=== PATIENT | female | born 1970 | race Caucasian/White ===

== ENCOUNTER 2017-06-12 17:52 | Inpatient (IN) | payer OTHER ==
[~2017-06-12] VITALS: Ht 162.6 cm; Wt 90.7 kg
[~2017-06-12 17:52] MED LIST: ACETAMINOPHEN-1 EAC1 PO; BENTYL 20 MG TA20 M1 PO; CRESTOR20 MG PO; CYMBALTA60 MG PO; DICLOFENAC SODI75 MG PO; DULOXETINE HCL40 MG PO; FLEXERIL PO; MEDROLDOSEPACK PO; NORFLEX100 MG PO; PROMETHAZINE V473 ML PO; TOPAMAX 100 MG100 MG PO; ULTRAM 50MG TAB50 MG PO; ZOFRAN4 MG PO; ZPAK PO; [UNRECOGNIZED DRUG - OTHER]
[2017-06-12 18:08] VITALS: BP 111/68
[2017-06-12 18:43] LABS: ABSOLUTE BASOPHILS 0.1 thou/uL (0.0-0.2); BASOPHILS 0.6 %; HEMATOCRIT 36.3 % (37.0-47.0); MCV 83.4 fL (80.0-100.0); RBC 4.35 mil/uL (4.20-5.00); RDW-CV 14.5 % (10.5-14.5)
[2017-06-12 18:44] LABS: ABSOLUTE EOSINOPHILS 0.3 thou/uL (0.0-0.7); ABSOLUTE LYMPHOCYTES 2.7 thou/uL (0.8-5.3); ABSOLUTE MONOCYTES 0.8 thou/uL (0.0-1.2); EOSINOPHILS 2.3 %; HEMOGLOBIN 11.8 gm/dL (12.0-15.0); LYMPHOCYTES 23.1 %; MCH 27.2 pg (26.0-34.0); MCHC 32.6 g/dL (28.0-37.0); MONOCYTES 6.5 %; NUCLEATED RBCS 0 /100WBC; PLATELET COUNT* 395 thou/uL (150-400); POLYS 67.5 %; WBC 11.8 thou/uL (4.0-11.0)
[2017-06-12 18:50] LABS: ANION GAP 10 mmol/L (7-16); BUN 6 mg/dL (7-18); CALCIUM 8.6 mg/dL (8.5-10.1); CHLORIDE 103 mmol/L (98-107); CO2 23 mmol/L (21-32); CREATININE 0.6 mg/dL (0.6-1.3); GLUCOSE 96 mg/dL (70-99); POTASSIUM 3.6 mmol/L (3.5-5.1); SODIUM 136 mmol/L (136-145)
[2017-06-12 18:56] LABS: ALBUMIN 3.3 g/dL (3.4-5.0); ALKALINE PHOSPHATASE 125 U/L (46-116); SGOT 25 U/L (15-37); SGPT 35 U/L (30-65); TOTAL BILIRUBIN 0.4 mg/dL (<0.1-1.0); TOTAL PROTEIN 7.5 g/dL (6.4-8.2); TROPONIN-I LEVEL <0.06 ng/mL (<0.06)
[2017-06-12 19:12] LABS: APTT 28.8 Seconds (25.0-31.3); PROTIME 9.9 Seconds (9.20-11.50)
[2017-06-13] VITALS (8 sets, daily range): BP systolic 86–125; BP diastolic 52–78
[2017-06-13 00:59] LABS: INFLUENZA A ANTIGEN None Detected (None Detect); INFLUENZA B ANTIGEN None Detected (None Detect)
--- NOTE | 2017-06-13 11:24 | EKG ---
[place] [address] ELECTROCARDIOGRAM REPORT Name: JOSÉ MIGUEL LOOMIS Room: [place] [address] ADM IN [facility]#: [id number] Admission: 06/12/17 Attend Phys: Leti Tolentino MD Discharge: Date of : 70 Report #: [id number] THIS REPORT FOR: //name// [facility] ED Test Date: 2017-06-12 Test Time: 18:05:14 Pat Name: JOSÉ MIGUEL LOOMIS Department: Room: [facility] Gender: F School Psychologist: MACKENZIE : 1970 Requested By: Debbie Street Order Number: [id number] MD: Janes Bennett Measurements Intervals [place] Rate: 100 P: 51 SC: 154 QRS: -41 QRSD: 104 T: 58 QT: 374 QTc: 483 Interpretive Statements Sinus tachycardia Left axis deviation Low voltage, precordial leads Probable anterolateral infarct, old Baseline wander in lead(s) V5 No previous ECG available for comparison Electronically Signed On 06-13-2017 11:23:58 COMMERCIAL REPRESENTATIVE by Janes Bennett [email or web address] <ELECTRONICALLY SIGNED> By: Janes Bennett MD, [facility] 06/13/17 1123 1805 1805 Janes Bennett MD, [facility] /EPI
--- NOTE | 2017-06-13 19:12 | NUR ---
LAMAR RESTING IN BED. UP TO CHAIR AND AMBULATION WITH STANDBY ASSISTANCE ONLY. IV MEDICATION PROVIDES GOOD PAIN CONTROL. SB/NSR ON MONITOR. HOURKY ROUNDING COMPLETED FOR PATIENT SAFETY.
[2017-06-14] VITALS: BP 93/53
[2017-06-14 04:00] VITALS: BP 95/51
--- NOTE | 2017-06-14 04:14 | NUR ---
ASSUMED CARE OF PT AT 1930, NURSING ASSESSMENT COMPLETED AT START OF SHIFT, PT C/O PAIN TO RIGHT SIDE OF CHEST THAT IS WORSE WITH INSPIRATION. PRN PAIN MEDICATIONS ADMINISTERED, SEE EMAR FOR DOCUMENTATION. CALL LIGHT WITHIN REACH. PT TRACING SINUS RHYTHM THIS SHIFT.
[2017-06-14 05:20] LABS: HEMATOCRIT 32.1 % (37.0-47.0); HEMOGLOBIN 10.7 gm/dL (12.0-15.0); MCH 27.6 pg (26.0-34.0); MCHC 33.4 g/dL (28.0-37.0); MCV 82.8 fL (80.0-100.0); MPV 7.3 fl. (7.2-11.1); RBC 3.88 mil/uL (4.20-5.00); RDW-CV 14.6 % (10.5-14.5); WBC 9.5 thou/uL (4.0-11.0)
[2017-06-14 05:36] LABS: CALCIUM 8.5 mg/dL (8.5-10.1); CREATININE 0.6 mg/dL (0.6-1.3); MAGNESIUM 1.9 mg/dL (1.8-2.4); POTASSIUM 3.7 mmol/L (3.5-5.1)
[2017-06-14 08:00] VITALS: BP 86/49
[2017-06-14 11:41] VITALS: BP 96/61
--- NOTE | 2017-06-14 12:14 | NUR ---
RX FOR XARELTO 15 MG PO BID X30 DAYS CALLED IN TO [facility] IN [place]. CARTER WILL BE $8.35 FOR A ONE MONTH SUPPLY. PT NOTIFIED
--- NOTE | 2017-06-14 12:38 | NUR ---
RECEIVED PT CARE 0700. PT IS ALERT AND ORIENTED X4. VSS. SURGICAL APPLIANCE FITTER TRACING SR. PT DENIES ANY SOA. O2 SAT 93% ON ROOM AIR. UP AD STAS IN ROOM WITH BATHROOM PRIVILEDGES. GAIT IS STEADY. PRN PAIN MEDICATIONS GIVEN WITH GOOD RELIEF. SHE COMPLAINS OF RIGHT CHEST, HEAD, AND BACK PAINS THIS AM. UP TO SHOWER INDEPENDENTLY THIS AM. AM ASSESSMENT CHARTED. MEDS PER MAR. CHECKING ON PRICES FOR HOME XARELTO. PLANNING FOR DC TO HOME TOMORROW IF STABLE. PATIENT UPDATED ON PLAN OF CARE. CALL LIGHT WITHIN REACH. WILL CONTINUE TO MONITOR.
--- NOTE | 2017-06-14 13:00 | NUR ---
RX CALLED IN FOR [address] HARRINGTON
--- NOTE | 2017-06-14 15:19 | NUR ---
CM ASSESSMENT: Pt is A&O. Resides at home. Independent with ADLs. No DME. No hx of HH or SNF. Anticipate dc tomorrow. No needs.
[2017-06-14 16:00] VITALS: BP 124/69
--- NOTE | 2017-06-14 18:55 | NUR ---
PT PARTIALLY PROGRESSING TOWARDS GOALS. PAIN MEDICATIONS ADJUSTED FOR BETTER PAIN MANAGEMENT. PATIENT IS UP INDEPENDENTLY IN ROOM WITH BATHROOM PRIVILEDGES. GAIT IS STEADY. TOLERATING HER DIET WELL WITHOUT ANY NAUSEA OR VOMITING. HOURLY ROUNDING CHARTED. CALL LIGHT WITHIN REACH. WILL CONTINUE TO MONITOR.
[2017-06-14 20:00] VITALS: BP 101/55
[2017-06-15] VITALS (8 sets, daily range): BP systolic 82–135; BP diastolic 48–57
--- NOTE | 2017-06-15 05:21 | NUR ---
ASSUMED CARE OF PT AT 1930, NURSING ASSESSMENT COMPLETED AT START OF SHIFT, PRN PAIN MEDICATION ADMINISTERED THIS SHIFT, SEE EMAR FOR DOCUMENTATION, PT CONTINUES ON TELE MONITOR, TRACING SINUS RHYTHM TO SINUS TACHY IN THE LOW 100S. CALL LIGHT REMAINS WITHIN REACH.
--- NOTE | 2017-06-15 10:05 | NUR ---
ASSUMED CARE OF PT AT 0730. PT LYING IN BED. AT APPROXIMATELY 0840 PT COMPLAINED OF CHEST PAIN RADIATING TO LEFT SHOULDER AND BACK. EKG OBTAINED TRACING SR. CHEST PAIN TREATED WITH NITRO X 3 WITH PARTIAL RELIEF. PT STATED AFTER THIRD NITRO PAIN IS CENTERED TO BACK. BLOOD PRESSURE STABLE. REFER TO CHARTING. PT PLACED ON 2L NC FOR COMFORT. SAT 97%. DENIES ANY SHORTNESS OF BREATH. DR HARRINGTON NOTIFIED. NO NEW ORDERS RECEIVED AT THIS TIME. PT A&0X4. TRACING SR ON THE PRESSURIZER. PT UP AD STAS IN ROOM. PT GOAL FOR TODAY IS PAIN MGMT. AM ASSESSMENT CHARTED. MEDICATIONS PER AUG. PT REPOSITIONS SELF IN BED. HOURLY ROUNDING OBSERVED. BED IN LOW POSITION. CALL LIGHT WITHIN REACH. WILL CONTINUE PLAN OF CARE.
[2017-06-15] MEDS ORDERED: XARELTO15 MG PO (10:43)
[2017-06-15] MEDS ORDERED: LIDOPATCH1 EACH TOP (10:43)
[2017-06-15] MEDS ORDERED: PERCOCET PO (11:55)
--- NOTE | 2017-06-15 12:22 | NUR ---
DISCHARGE ORDERS RECEIVED. DISCHARGE INSTRUCTIONS, CARE NOTES, SCRIPTS AND FOLLOW UP APPTS GIVEN TO PT. PT COMMUNICATES UNDERSTANDING OF DISCHARGE TEACHING. IV AND ELECTRICIAN RADIO REMOVED. PT DISCHARGED WITH ALL BELONGINGS AND PAPERWORK VIA WHEELCHAIR WITH NURSING STAFF TO SPOUSE OWN PERSONAL VEHICLE.
--- NOTE | 2017-06-15 17:30 | EKG ---
[place] [address] ELECTROCARDIOGRAM REPORT Name: JOSÉ MIGUEL LOOMIS Room: [address] IN M.R.#: [id number] Admission: 06/12/17 Attend Phys: Leti Tolentino MD Discharge: 06/15/17 Date of : 70 Report #: [id number] THIS REPORT FOR: //name// [facility] Test Date: 2017-06-15 Test Time: 08:36:34 Pat Name: JOSÉ MIGUEL LOOMIS Department: Room: [address] Gender: F Computing Tutor: : 1970 Requested By: Leti Tolentino Order Number: [id number] Marta MD: Sharath Rg Measurements Intervals [place] Rate: 83 P: -17 UT: 145 QRS: -23 QRSD: 126 T: 14 QT: 400 QTc: 470 Interpretive Statements Sinus rhythm Nonspecific intraventricular conduction delay Borderline T abnormalities, anterior leads Baseline wander in lead(s) I,III,aVL Compared to ECG 06/12/2017 18:05:14 Intraventricular conduction delay now present T-wave abnormality now present Sinus tachycardia no longer present Left-axis deviation no longer present Myocardial infarct finding no longer present Electronically Signed On 06-15-2017 17:30:24 COMMERCIAL CARPENTER by Sharath Rg [email or web address] <ELECTRONICALLY SIGNED> By: Sharath Rg MD, [facility] 06/15/17 1730 0836 Sharath Rg MD, [facility] /EPI
== END 2017-06-15 12:27 | disposition home or self-care (01) | DRG 176 ==
LOC: M.ERS 17:52 → M.TBA-ER 21:36 → M.2W 06-13 15:44
PROVIDERS: Internal Medicine; Nurse Practitioner Family; ADMIT Internal Medicine
DX: I26.99 Other pulmonary embolism without acute cor pulmonale (principal); R65.10 Systemic inflammatory response syndrome (SIRS) of non-infectious origin without acute organ dysfunction; D68.59 Other primary thrombophilia; E87.2 Acidosis; J98.11 Atelectasis; M79.7 Fibromyalgia; M19.90 Unspecified osteoarthritis, unspecified site; E66.9 Obesity, unspecified; Z68.34 Body mass index [BMI] 34.0-34.9, adult

== ENCOUNTER → 2017-07-18 | Outpatient (CLI) | payer OTHER ==
[~2017-07-18] MED LIST changes: +LIDOPATCH1 EACH TOP; +PERCOCET PO; +XARELTO15 MG PO
== END ==
LOC: M.RAD 11:20
DX: J06.9 Acute upper respiratory infection, unspecified (principal); J02.9 Acute pharyngitis, unspecified; B97.89 Other viral agents as the cause of diseases classified elsewhere; I26.99 Other pulmonary embolism without acute cor pulmonale